=== PATIENT | female | born 1935 | race Caucasian/White ===

== ENCOUNTER 2017-12-12 10:55 | Emergency (ER) | payer OTHER ==
[2017-12-12] MEDS: AZITHROMYCIN 250 MG TAB PO (15:29)
[2017-12-12 15:30] LABS: ADD MAN DIFF? NO
[2017-12-12 15:31] LABS: ABNORMAL IP MESSAGE 1; BASOPHILS % 0.6 % (0.0-2.0); EOSINOPHILS # 0.1 10^3/ul (0.0-0.5); EOSINOPHILS % 1.7 % (0.0-7.0); HEMATOCRIT 39.4 % (37.0-47.0); HEMOGLOBIN 12.9 g/dl (12.0-16.0); LYMPHOCYTES # 2.2 10^3/ul (0.8-2.9); LYMPHOCYTES % 42.8 % (15.0-51.0); MEAN CORPUSCULAR HGB CONC 32.7 g/dl (32.0-37.0); MEAN CORPUSCULAR VOLUME 110.1 fl (82.0-101.0); MEAN PLATELET VOLUME 10.9 fl (7.4-10.4); MONOCYTE # 0.5 10^3/ul (0.3-0.9); MONOCYTES % 9.1 % (0.0-11.0); NEUTROPHIL # 2.4 10^3/ul (1.6-7.5); NEUTROPHILS % 45.6 % (39.0-77.0); PLATELET COUNT 91 10^3/UL (140-415); RED BLOOD COUNT 3.58 10^6/ul (4.20-5.40); RED CELL DISTRIBUTION WIDTH 13.6 % (11.5-14.5)
[2017-12-12 15:31] LABS: WHITE BLOOD COUNT 5.2 10^3/ul (4.8-10.8)
[2017-12-12 15:33] LABS: POSITIVE DIFF @See below
[2017-12-12 15:48] LABS: ANION GAP 8 (8-16); BLOOD UREA NITROGEN 12 mg/dl (7-20); CALCIUM 8.6 mg/dl (8.4-10.2); CARBON DIOXIDE 30 mmol/L (21-31); CHLORIDE 105 mmol/L (97-110); CREATININE 0.66 mg/dl (0.44-1.00); GLUCOSE 100 mg/dl (70-220); POTASSIUM 4.2 mmol/L (3.5-5.1); SODIUM 139 mmol/L (135-144)
[2017-12-12 15:59] LABS: TROPONIN-I < 0.012 ng/ml (0.000-0.120)
== END 2017-12-12 17:27 | disposition home or self-care (01) ==
LOC: E/R 10:55
DX: J40 Bronchitis, not specified as acute or chronic (principal); R00.1 Bradycardia, unspecified
CPT/HCPCS: 36415; 71045; 80048; 84484; 85025; 93005; 99285-25

== ENCOUNTER 2017-12-23 23:34 | Inpatient (IN) | payer OTHER ==
[2017-12-24 00:28] LABS: ADD MAN DIFF? NO
[2017-12-24 00:31] LABS: ABNORMAL IP MESSAGE 1; BASOPHILS % 0.5 % (0.0-2.0); EOSINOPHILS # 0.2 10^3/ul (0.0-0.5); EOSINOPHILS % 4.7 % (0.0-7.0); HEMATOCRIT 35.4 % (37.0-47.0); HEMOGLOBIN 11.5 g/dl (12.0-16.0); LYMPHOCYTES # 1.6 10^3/ul (0.8-2.9); LYMPHOCYTES % 38.8 % (15.0-51.0); MEAN CORPUSCULAR HEMOGLOBIN 35.1 pg (29.0-33.0); MEAN CORPUSCULAR HGB CONC 32.5 g/dl (32.0-37.0); MEAN CORPUSCULAR VOLUME 107.9 fl (82.0-101.0); MEAN PLATELET VOLUME 11.2 fl (7.4-10.4); MONOCYTE # 0.5 10^3/ul (0.3-0.9); MONOCYTES % 11.9 % (0.0-11.0); NEUTROPHIL # 1.8 10^3/ul (1.6-7.5); NEUTROPHILS % 43.9 % (39.0-77.0); PLATELET COUNT 70 10^3/UL (140-415); RED BLOOD COUNT 3.28 10^6/ul (4.20-5.40); RED CELL DISTRIBUTION WIDTH 13.5 % (11.5-14.5)
[2017-12-24 00:32] LABS: POSITIVE DIFF @See below
[2017-12-24 00:51] LABS: INR 1.38; PROTIME 17.2 Sec (11.9-14.9); PT RATIO 1.3
[2017-12-24 00:55] LABS: ALANINE AMINOTRANSFERASE 57 IU/L (13-69); ALBUMIN 2.7 g/dl (3.3-4.9); ALBUMIN/GLOBULIN RATIO 0.69; ALKALINE PHOSPHATASE 278 IU/L (42-121); ANION GAP 8 (8-16); ASPARTATE AMINO TRANSFERASE 93 IU/L (15-46); BILIRUBIN,INDIRECT 1.3 mg/dl (0-1.1); BILIRUBIN,TOTAL 1.3 mg/dl (0.2-1.3); BLOOD UREA NITROGEN 6 mg/dl (7-20); CALCIUM 8.3 mg/dl (8.4-10.2); CARBON DIOXIDE 30 mmol/L (21-31); CHLORIDE 105 mmol/L (97-110); CREATININE 0.55 mg/dl (0.44-1.00); GLUCOSE 107 mg/dl (70-220); LIPASE 144 U/L (23-300); POTASSIUM 3.6 mmol/L (3.5-5.1); SODIUM 139 mmol/L (135-144); TOTAL PROTEIN 6.6 g/dl (6.1-8.1)
[2017-12-24] MEDS ORDERED: CLINDAMYCIN 600 MG INJ IVPB (01:30)
[2017-12-24] MEDS: HYDROCODONE/APAP (10/325) TAB PO (02:19)
[2017-12-24] MEDS: CLINDAMYCIN 600 MG/D5W (PMX) 50 ML IVPB ×2 (02:19→21:05)
[2017-12-24] MEDS: IBUPROFEN 600 MG TAB PO (05:57)
[2017-12-24 06:50] LABS: ADD MAN DIFF? NO
[2017-12-24 06:58] LABS: WHITE BLOOD COUNT 3.8 10^3/ul (4.8-10.8)
[2017-12-24 06:58] LABS: ABNORMAL IP MESSAGE 1; BASOPHILS % 0.5 % (0.0-2.0); EOSINOPHILS # 0.1 10^3/ul (0.0-0.5); EOSINOPHILS % 3.2 % (0.0-7.0); HEMATOCRIT 33.2 % (37.0-47.0); HEMOGLOBIN 10.8 g/dl (12.0-16.0); LYMPHOCYTES # 1.4 10^3/ul (0.8-2.9); LYMPHOCYTES % 37.1 % (15.0-51.0); MEAN CORPUSCULAR HEMOGLOBIN 35.1 pg (29.0-33.0); MEAN CORPUSCULAR HGB CONC 32.5 g/dl (32.0-37.0); MEAN CORPUSCULAR VOLUME 107.8 fl (82.0-101.0); MEAN PLATELET VOLUME 11.7 fl (7.4-10.4); MONOCYTE # 0.4 10^3/ul (0.3-0.9); MONOCYTES % 10.9 % (0.0-11.0); NEUTROPHIL # 1.8 10^3/ul (1.6-7.5); PLATELET COUNT 65 10^3/UL (140-415); RED BLOOD COUNT 3.08 10^6/ul (4.20-5.40); RED CELL DISTRIBUTION WIDTH 13.8 % (11.5-14.5)
[2017-12-24 07:02] LABS: POSITIVE DIFF @See below
[2017-12-24 07:23] LABS: ANION GAP 7 (8-16); BLOOD UREA NITROGEN 7 mg/dl (7-20); CARBON DIOXIDE 27 mmol/L (21-31); CHLORIDE 107 mmol/L (97-110); GLUCOSE 104 mg/dl (70-220); POTASSIUM 4.1 mmol/L (3.5-5.1); SODIUM 137 mmol/L (135-144)
[2017-12-24] MEDS ORDERED: morphine 2 MG INJ IV (12:00)
[2017-12-24] MEDS ORDERED: BISACODYL (EC) 5 MG TAB PO (12:00)
[2017-12-24] MEDS ORDERED: DOCUSATE SODIUM 100 MG CAP PO (12:00)
[2017-12-24] MEDS: SOD CHLORIDE 0.9% 1,000 ML IV (13:47)
[2017-12-24] MEDS: ONDANSETRON 4 MG INJ IV (13:47)
[2017-12-24 14:05] LABS: HAAIG REFLEX REFLEX FILED
[2017-12-24 15:08] LABS: HEPATITIS B CORE ANTIBODY NEGATIVE (NEGATIVE)
[2017-12-24] MEDS: METOCLOPRAMIDE 10 MG INJ IV ×2 (16:11→21:04)
[2017-12-24 18:22] LABS: HEPATITIS B SURFACE ANTIGEN NEGATIVE (NEGATIVE)
[2017-12-24 18:40] LABS: HEPATITIS C VIRAL ANTIBODY NEGATIVE (NEGATIVE)
[2017-12-24] MEDS: PANTOPRAZOLE 40 MG INJ IV (18:48)
[2017-12-24] MEDS ORDERED: HEPARIN 5,000 UNIT/0.5 ML VIAL SC (21:00)
[2017-12-25] MEDS: METOCLOPRAMIDE 10 MG INJ IV ×3 (05:09→21:34)
[2017-12-25] MEDS: PANTOPRAZOLE 40 MG INJ IV ×2 (05:09→18:28)
[2017-12-25] MEDS: SOD CHLORIDE 0.9% 1,000 ML IV ×2 (05:09→21:20)
[2017-12-25] MEDS ORDERED: PANTOPRAZOLE (EC) 40 MG TAB PO (06:00)
[2017-12-25 06:01] LABS: ADD MAN DIFF? NO
[2017-12-25 06:17] LABS: ABNORMAL IP MESSAGE 1; BASOPHILS % 0.6 % (0.0-2.0); EOSINOPHILS # 0.2 10^3/ul (0.0-0.5); EOSINOPHILS % 4.2 % (0.0-7.0); HEMATOCRIT 35.2 % (37.0-47.0); HEMOGLOBIN 11.6 g/dl (12.0-16.0); LYMPHOCYTES # 1.7 10^3/ul (0.8-2.9); LYMPHOCYTES % 48.2 % (15.0-51.0); MEAN CORPUSCULAR HEMOGLOBIN 36.3 pg (29.0-33.0); MEAN PLATELET VOLUME 11.6 fl (7.4-10.4); MONOCYTE # 0.3 10^3/ul (0.3-0.9); MONOCYTES % 9.2 % (0.0-11.0); NEUTROPHIL # 1.3 10^3/ul (1.6-7.5); NEUTROPHILS % 37.5 % (39.0-77.0); PLATELET COUNT 68 10^3/UL (140-415); RED CELL DISTRIBUTION WIDTH 13.9 % (11.5-14.5)
[2017-12-25 06:17] LABS: WHITE BLOOD COUNT 3.6 10^3/ul (4.8-10.8)
[2017-12-25 06:26] LABS: POSITIVE DIFF @See below
[2017-12-25 06:35] LABS: INR 1.44; PROTIME 17.8 Sec (11.9-14.9); PT RATIO 1.4
[2017-12-25 06:36] LABS: PARTIAL THROMBOPLASTIN TIME 38.9 Sec (25.0-35.0)
[2017-12-25 06:57] LABS: ALANINE AMINOTRANSFERASE 52 IU/L (13-69); ALBUMIN 2.3 g/dl (3.3-4.9); ALBUMIN/GLOBULIN RATIO 0.63; ALKALINE PHOSPHATASE 188 IU/L (42-121); ANION GAP 7 (8-16); ASPARTATE AMINO TRANSFERASE 88 IU/L (15-46); BILIRUBIN,INDIRECT 1.8 mg/dl (0-1.1); BILIRUBIN,TOTAL 1.8 mg/dl (0.2-1.3); BLOOD UREA NITROGEN 8 mg/dl (7-20); CARBON DIOXIDE 28 mmol/L (21-31); CHLORIDE 109 mmol/L (97-110); CREATININE 0.58 mg/dl (0.44-1.00); GLUCOSE 69 mg/dl (70-220); POTASSIUM 4.4 mmol/L (3.5-5.1); SODIUM 140 mmol/L (135-144); TOTAL PROTEIN 5.9 g/dl (6.1-8.1)
[2017-12-25] MEDS: CLINDAMYCIN 600 MG/D5W (PMX) 50 ML IVPB (09:29)
[2017-12-25] MEDS: PROPOFOL 40 ML (15:00)
[2017-12-26] MEDS: SOD CHLORIDE 0.9% 1,000 ML IV ×3 (02:45→20:29)
[2017-12-26] MEDS: PANTOPRAZOLE 40 MG INJ IV ×2 (05:19→17:40)
[2017-12-26] MEDS: LEVOTHYROXINE 50 MCG TAB PO (05:19)
[2017-12-26] MEDS: METOCLOPRAMIDE 10 MG INJ IV ×3 (05:20→20:29)
[2017-12-26 06:48] LABS: ADD MAN DIFF? NO
[2017-12-26 07:02] LABS: ABNORMAL IP MESSAGE 1; BASOPHILS % 0.3 % (0.0-2.0); EOSINOPHILS # 0.1 10^3/ul (0.0-0.5); EOSINOPHILS % 3.3 % (0.0-7.0); HEMATOCRIT 34.3 % (37.0-47.0); HEMOGLOBIN 11.2 g/dl (12.0-16.0); LYMPHOCYTES # 1.5 10^3/ul (0.8-2.9); LYMPHOCYTES % 37.6 % (15.0-51.0); MEAN CORPUSCULAR HEMOGLOBIN 35.7 pg (29.0-33.0); MEAN CORPUSCULAR HGB CONC 32.7 g/dl (32.0-37.0); MEAN CORPUSCULAR VOLUME 109.2 fl (82.0-101.0); MEAN PLATELET VOLUME 11.8 fl (7.4-10.4); MONOCYTE # 0.4 10^3/ul (0.3-0.9); MONOCYTES % 10.7 % (0.0-11.0); NEUTROPHIL # 1.9 10^3/ul (1.6-7.5); NEUTROPHILS % 48.1 % (39.0-77.0); PLATELET COUNT 69 10^3/UL (140-415); RED BLOOD COUNT 3.14 10^6/ul (4.20-5.40); RED CELL DISTRIBUTION WIDTH 14.3 % (11.5-14.5)
[2017-12-26 07:02] LABS: WHITE BLOOD COUNT 3.9 10^3/ul (4.8-10.8)
[2017-12-26 07:25] LABS: ANION GAP 7 (8-16); BLOOD UREA NITROGEN 11 mg/dl (7-20); CARBON DIOXIDE 27 mmol/L (21-31); CHLORIDE 109 mmol/L (97-110); CREATININE 0.69 mg/dl (0.44-1.00); GLUCOSE 73 mg/dl (70-220); POTASSIUM 4.3 mmol/L (3.5-5.1); SODIUM 139 mmol/L (135-144)
[2017-12-26 07:27] LABS: POSITIVE DIFF @See below
[2017-12-26 07:32] LABS: FREE T4 (FREE THYROXINE) 1.09 ng/dl (0.85-1.93)
[2017-12-26] MEDS ORDERED: morphine LIQ (10 MG/5 ML) CUP PO (17:00)
[2017-12-26] MEDS: LIDOCAINE 2% (SDV) 5 ML INJ (19:33)
[2017-12-27] MEDS: PANTOPRAZOLE 40 MG INJ IV ×2 (06:06→17:18)
[2017-12-27] MEDS: METOCLOPRAMIDE 10 MG INJ IV ×3 (06:06→21:20)
[2017-12-27] MEDS: LEVOTHYROXINE 50 MCG TAB PO (06:06)
[2017-12-27] MEDS: SOD CHLORIDE 0.9% 1,000 ML IV ×2 (14:47→23:20)
[2017-12-28] MEDS: LEVOTHYROXINE 125 MCG TAB PO (06:05)
[2017-12-28] MEDS: PANTOPRAZOLE 40 MG INJ IV ×2 (06:05→17:52)
[2017-12-28] MEDS: METOCLOPRAMIDE 10 MG INJ IV ×3 (06:05→21:22)
[2017-12-28 06:14] LABS: ADD MAN DIFF? NO
[2017-12-28 06:30] LABS: WHITE BLOOD COUNT 3.3 10^3/ul (4.8-10.8)
[2017-12-28 06:30] LABS: ABNORMAL IP MESSAGE 1; BASOPHILS % 0.6 % (0.0-2.0); EOSINOPHILS # 0.2 10^3/ul (0.0-0.5); EOSINOPHILS % 4.8 % (0.0-7.0); HEMATOCRIT 33.2 % (37.0-47.0); HEMOGLOBIN 10.9 g/dl (12.0-16.0); LYMPHOCYTES # 1.7 10^3/ul (0.8-2.9); LYMPHOCYTES % 50.5 % (15.0-51.0); MEAN CORPUSCULAR HGB CONC 32.8 g/dl (32.0-37.0); MEAN CORPUSCULAR VOLUME 109.6 fl (82.0-101.0); MEAN PLATELET VOLUME 11.6 fl (7.4-10.4); MONOCYTE # 0.3 10^3/ul (0.3-0.9); MONOCYTES % 9.7 % (0.0-11.0); NEUTROPHIL # 1.1 10^3/ul (1.6-7.5); NEUTROPHILS % 34.1 % (39.0-77.0); PLATELET COUNT 65 10^3/UL (140-415); RED BLOOD COUNT 3.03 10^6/ul (4.20-5.40); RED CELL DISTRIBUTION WIDTH 14.1 % (11.5-14.5)
[2017-12-28] MEDS: SOD CHLORIDE 0.9% 1,000 ML IV (06:48)
[2017-12-28 07:11] LABS: ANION GAP 3 (8-16); BLOOD UREA NITROGEN 6 mg/dl (7-20); CARBON DIOXIDE 30 mmol/L (21-31); CHLORIDE 111 mmol/L (97-110); CREATININE 0.64 mg/dl (0.44-1.00); GLUCOSE 78 mg/dl (70-220); POTASSIUM 4.1 mmol/L (3.5-5.1); SODIUM 140 mmol/L (135-144)
[2017-12-28 07:24] LABS: POSITIVE DIFF @See below
[2017-12-29] MEDS: SOD CHLORIDE 0.9% 1,000 ML IV ×3 (04:30→21:28)
[2017-12-29] MEDS: LEVOTHYROXINE 125 MCG TAB PO (06:13)
[2017-12-29] MEDS: METOCLOPRAMIDE 10 MG INJ IV ×3 (06:13→21:27)
[2017-12-29] MEDS: PANTOPRAZOLE 40 MG INJ IV ×2 (06:13→18:27)
[2017-12-30] MEDS: SOD CHLORIDE 0.9% 1,000 ML IV ×2 (01:20→12:57)
[2017-12-30] MEDS: LEVOTHYROXINE 125 MCG TAB PO (06:19)
[2017-12-30] MEDS: PANTOPRAZOLE 40 MG INJ IV ×2 (06:19→17:50)
[2017-12-30] MEDS: METOCLOPRAMIDE 10 MG INJ IV ×3 (06:19→21:58)
[2017-12-31] MEDS: PANTOPRAZOLE 40 MG INJ IV ×2 (05:59→18:31)
[2017-12-31] MEDS: METOCLOPRAMIDE 10 MG INJ IV ×3 (05:59→21:25)
[2017-12-31] MEDS: LEVOTHYROXINE 125 MCG TAB PO (06:04)
[2017-12-31 07:06] LABS: ADD MAN DIFF? NO
[2017-12-31 07:13] LABS: ABNORMAL IP MESSAGE 1; BASOPHILS % 0.3 % (0.0-2.0); EOSINOPHILS # 0.1 10^3/ul (0.0-0.5); EOSINOPHILS % 3.6 % (0.0-7.0); HEMATOCRIT 31.6 % (37.0-47.0); HEMOGLOBIN 10.6 g/dl (12.0-16.0); LYMPHOCYTES # 1.7 10^3/ul (0.8-2.9); LYMPHOCYTES % 44.6 % (15.0-51.0); MEAN CORPUSCULAR HEMOGLOBIN 36.3 pg (29.0-33.0); MEAN CORPUSCULAR HGB CONC 33.5 g/dl (32.0-37.0); MEAN CORPUSCULAR VOLUME 108.2 fl (82.0-101.0); MEAN PLATELET VOLUME 11.4 fl (7.4-10.4); MONOCYTE # 0.4 10^3/ul (0.3-0.9); MONOCYTES % 11.1 % (0.0-11.0); NEUTROPHIL # 1.6 10^3/ul (1.6-7.5); NEUTROPHILS % 40.4 % (39.0-77.0); PLATELET COUNT 64 10^3/UL (140-415); RED BLOOD COUNT 2.92 10^6/ul (4.20-5.40); RED CELL DISTRIBUTION WIDTH 14.2 % (11.5-14.5)
[2017-12-31 07:13] LABS: WHITE BLOOD COUNT 3.9 10^3/ul (4.8-10.8)
[2017-12-31 07:26] LABS: POSITIVE DIFF @See below
[2017-12-31 07:37] LABS: INR 1.46; PT RATIO 1.4
[2017-12-31 07:48] LABS: ANION GAP 8 (8-16); BLOOD UREA NITROGEN 7 mg/dl (7-20); CALCIUM 8.2 mg/dl (8.4-10.2); CARBON DIOXIDE 30 mmol/L (21-31); CHLORIDE 106 mmol/L (97-110); CREATININE 0.57 mg/dl (0.44-1.00); GLUCOSE 75 mg/dl (70-220); POTASSIUM 4.1 mmol/L (3.5-5.1); SODIUM 140 mmol/L (135-144)
[2018-01-01] MEDS: METOCLOPRAMIDE 10 MG INJ IV ×2 (06:04→14:33)
[2018-01-01] MEDS: LEVOTHYROXINE 125 MCG TAB PO (06:05)
[2018-01-01] MEDS: PANTOPRAZOLE 40 MG INJ IV ×2 (06:05→17:27)
== END 2018-01-01 21:40 | disposition home or self-care (01) | DRG 603 ==
LOC: E/R 23:34 → 2NE 12-24 01:40
PROC: 0DB68ZX Excision of Stomach, Via Natural or Artificial Opening Endoscopic, Diagnostic (ICD-10-PCS; principal; 2017-12-25 14:10)
DX: L03.115 Cellulitis of right lower limb (principal); D61.818 Other pancytopenia; D68.9 Coagulation defect, unspecified; M48.56XA Collapsed vertebra, not elsewhere classified, lumbar region, initial encounter for fracture; K29.70 Gastritis, unspecified, without bleeding; E03.9 Hypothyroidism, unspecified; K75.81 Nonalcoholic steatohepatitis (NASH); R11.2 Nausea with vomiting, unspecified; M54.10 Radiculopathy, site unspecified; M48.061 Spinal stenosis, lumbar region without neurogenic claudication
CPT/HCPCS: 72158; 74176; 80048; 80053; 83690; 84439; 84443; 85025; 85610; 85730; 86704; 86709; 86803; 87040; 87081; 87340; 88305; 88312; 93970; 97116; 97161; 97530; G0378

== ENCOUNTER 2018-05-27 17:52 | Emergency (ER) | payer OTHER ==
[2018-05-27] MEDS ORDERED: CLINDAMYCIN 600 MG INJ IM (21:30)
[2018-05-27] MEDS: ACETAMINOPHEN 325 MG TAB PO ×2 (21:35→21:38)
[2018-05-27] MEDS: IBUPROFEN 200 MG TAB PO (21:35)
[2018-05-27] MEDS: AZITHROMYCIN 250 MG TAB PO (21:36)
[2018-05-27] MEDS: CLINDAMYCIN 300 MG INJ IM (21:46)
== END 2018-05-27 22:36 | disposition home or self-care (01) ==
LOC: FTE 22:36
DX: A49.9 Bacterial infection, unspecified (principal); Z96.652 Presence of left artificial knee joint
CPT/HCPCS: 96372; 99284-25

== ENCOUNTER 2018-06-01 11:04 | Inpatient (IN) | payer OTHER ==
[2018-06-01 11:58] LABS: AADO2 Arterial 337.4 mmHg (7.0-24.0); Allen Test ACCEPTAB; Arterial Base Excess -7.7 mmol/L (-3.0-3); Arterial Blood Gas Oxygen Sat 92.7 mmHG (95.0-100.0); Arterial COHb 0.9 % (0.0-3.0); Arterial Fraction of Oxyhgb 91.7 % (93.0-99.0); Arterial HCO3 15.8 mmol/L (22.0-26.0); Arterial MetHb 0.2 % (0.0-1.5); Arterial pCO2 27.4 mmhg (35-45); MODE MASK - SIMPLE; Site Left Radial
[2018-06-01 12:07] LABS: ADD MAN DIFF? NO
[2018-06-01 12:09] LABS: ABNORMAL IP MESSAGE 1; BASOPHILS % 0.3 % (0.0-2.0); EOSINOPHILS % 0.2 % (0.0-7.0); HEMATOCRIT 38.8 % (37.0-47.0); HEMOGLOBIN 12.4 g/dl (12.0-16.0); LYMPHOCYTES # 0.6 10^3/ul (0.8-2.9); LYMPHOCYTES % 4.7 % (15.0-51.0); MEAN CORPUSCULAR HEMOGLOBIN 35.2 pg (29.0-33.0); MEAN CORPUSCULAR VOLUME 110.2 fl (82.0-101.0); MEAN PLATELET VOLUME 11.4 fl (7.4-10.4); MONOCYTE # 0.9 10^3/ul (0.3-0.9); MONOCYTES % 7.4 % (0.0-11.0); NEUTROPHIL # 10.9 10^3/ul (1.6-7.5); NEUTROPHILS % 86.1 % (39.0-77.0); PLATELET COUNT 96 10^3/UL (140-415); RED BLOOD COUNT 3.52 10^6/ul (4.20-5.40); RED CELL DISTRIBUTION WIDTH 14.6 % (11.5-14.5)
[2018-06-01 12:09] LABS: WHITE BLOOD COUNT 12.6 10^3/ul (4.8-10.8)
[2018-06-01 12:10] LABS: POSITIVE DIFF @See below
[2018-06-01 12:29] LABS: INR 1.66; PROTIME 19.7 Sec (11.9-14.9); PT RATIO 1.5
[2018-06-01] MEDS: SODIUM CHLORIDE 0.9% 1L BAG IV* (12:30)
[2018-06-01 12:33] LABS: ALANINE AMINOTRANSFERASE 38 IU/L (13-69); ALBUMIN 2.7 g/dl (3.3-4.9); ALBUMIN/GLOBULIN RATIO 0.79; ALKALINE PHOSPHATASE 174 IU/L (42-121); ANION GAP 13 (5-13); ASPARTATE AMINO TRANSFERASE 95 IU/L (15-46); BILIRUBIN,INDIRECT 1.7 mg/dl (0-1.1); BILIRUBIN,TOTAL 1.7 mg/dl (0.2-1.3); BLOOD UREA NITROGEN 15 mg/dl (7-20); CALCIUM 8.4 mg/dl (8.4-10.2); CARBON DIOXIDE 20 mmol/L (21-31); CHLORIDE 105 mmol/L (97-110); GLUCOSE 104 mg/dl (70-220); POTASSIUM 3.9 mmol/L (3.5-5.1); SODIUM 138 mmol/L (135-144); TOTAL PROTEIN 6.1 g/dl (6.1-8.1)
[2018-06-01 12:38] LABS: ADD UMIC YES; UR ASCORBIC ACID 40 mg/dL (NEGATIVE); UR BACTERIA FEW /HPF (NONE SEEN); UR BILIRUBIN (Dip) NEGATIVE (NEGATIVE); UR BLOOD (Dip) NEGATIVE (NEGATIVE); UR CLARITY CLOUDY (CLEAR); UR COLOR AMBER (YELLOW); UR GLUCOSE (Dip) NEGATIVE (NEGATIVE); UR KETONES (Dip) NEGATIVE (NEGATIVE); UR LEUKOCYTE ESTERASE (Dip) TRACE Leu/ul (NEGATIVE); UR MUCUS FEW /HPF (NONE SEEN); UR NITRITE (Dip) NEGATIVE (NEGATIVE); UR RBC 2 /HPF (0-5); UR SPECIFIC GRAVITY (Dip) 1.025 (1.003-1.030); UR SQUAMOUS EPITHELIAL CELL MODERATE /HPF (FEW); UR TOTAL PROTEIN (Dip) NEGATIVE (NEGATIVE); UR UROBILINOGEN (Dip) 1+ mg/dL (NEGATIVE); UR WBC 4 /HPF (0-5)
[2018-06-01 12:45] LABS: TROPONIN-I 0.043 ng/ml (0.000-0.120)
[2018-06-01] MEDS: LEVOFLOXACIN 750MG/D5W (PMX) 150 ML IVPB (13:37)
[2018-06-01 13:51] LABS: B-TYPE NATRIURETIC PEPTIDE 1630 PG/ML (0-450)
[2018-06-01] MEDS ORDERED: ONDANSETRON 4 MG INJ IV ×2 (15:00→16:00)
[2018-06-01] MEDS: FUROSEMIDE 40 MG INJ IV (15:00)
[2018-06-01] MEDS ORDERED: ACETAMINOPHEN 325 MG TAB PO ×2 (15:00→16:00)
[2018-06-01] MEDS ORDERED: morphine 2 MG INJ IV (16:00)
[2018-06-01] MEDS ORDERED: NACL 0.9% 3 ML SYG IV (16:00)
[2018-06-01 19:44] LABS: LACTIC ACID 3.6 mmol/L (0.5-2.0)
[2018-06-01] MEDS ORDERED: RANITIDINE 150 MG TAB PO (21:00)
[2018-06-01] MEDS ORDERED: ALBUTEROL HFA 8 GM INHALER INH (21:00)
[2018-06-02] MEDS: FAMOTIDINE 20 MG INJ IV ×2 (00:19→08:33)
[2018-06-02 05:58] LABS: AADO2 Arterial 331.9 mmHg (7.0-24.0); Allen Test ACCEPTAB; Arterial Base Excess -2.6 mmol/L (-3.0-3); Arterial Blood Gas Oxygen Sat 91.5 mmHG (95.0-100.0); Arterial COHb 0.3 % (0.0-3.0); Arterial HCO3 20.8 mmol/L (22.0-26.0); Arterial MetHb 0.3 % (0.0-1.5); Arterial pCO2 31.5 mmhg (35-45); Blood Gas IEPAP 15/5; MODE MASK - BIPAP; Site Right Radial
[2018-06-02 06:00] LABS: ADD MAN DIFF? NO
[2018-06-02 06:08] LABS: WHITE BLOOD COUNT 11.2 10^3/ul (4.8-10.8)
[2018-06-02 06:08] LABS: ABNORMAL IP MESSAGE 1; BASOPHILS % 0.3 % (0.0-2.0); EOSINOPHILS # 0.1 10^3/ul (0.0-0.5); EOSINOPHILS % 0.4 % (0.0-7.0); HEMATOCRIT 34.6 % (37.0-47.0); HEMOGLOBIN 11.3 g/dl (12.0-16.0); LYMPHOCYTES # 0.7 10^3/ul (0.8-2.9); LYMPHOCYTES % 6.4 % (15.0-51.0); MEAN CORPUSCULAR HEMOGLOBIN 35.9 pg (29.0-33.0); MEAN CORPUSCULAR HGB CONC 32.7 g/dl (32.0-37.0); MEAN CORPUSCULAR VOLUME 109.8 fl (82.0-101.0); MEAN PLATELET VOLUME 11.9 fl (7.4-10.4); MONOCYTE # 0.6 10^3/ul (0.3-0.9); MONOCYTES % 5.7 % (0.0-11.0); NEUTROPHIL # 9.6 10^3/ul (1.6-7.5); NEUTROPHILS % 86.1 % (39.0-77.0); PLATELET COUNT 90 10^3/UL (140-415); RED BLOOD COUNT 3.15 10^6/ul (4.20-5.40); RED CELL DISTRIBUTION WIDTH 14.7 % (11.5-14.5)
[2018-06-02 06:16] LABS: POSITIVE DIFF @See below
[2018-06-02 06:41] LABS: HEMOGLOBIN A1C 4.7 % (0-5.9)
[2018-06-02] MEDS: LEVOTHYROXINE 125 MCG TAB PO (06:52)
[2018-06-02 07:07] LABS: ALANINE AMINOTRANSFERASE 40 IU/L (13-69); ALBUMIN 2.3 g/dl (3.3-4.9); ALBUMIN/GLOBULIN RATIO 0.74; ALKALINE PHOSPHATASE 151 IU/L (42-121); ANION GAP 5 (5-13); ASPARTATE AMINO TRANSFERASE 73 IU/L (15-46); BILIRUBIN,INDIRECT 1.2 mg/dl (0-1.1); BILIRUBIN,TOTAL 1.2 mg/dl (0.2-1.3); BLOOD UREA NITROGEN 17 mg/dl (7-20); CARBON DIOXIDE 25 mmol/L (21-31); CHLORIDE 108 mmol/L (97-110); CREATININE 0.84 mg/dl (0.44-1.00); GLUCOSE 65 mg/dl (70-220); POTASSIUM 4.1 mmol/L (3.5-5.1); SODIUM 138 mmol/L (135-144); TOTAL PROTEIN 5.4 g/dl (6.1-8.1)
[2018-06-02] MEDS: ENOXAPARIN 30 MG/0.3 ML SYG SC (08:37)
[2018-06-02] MEDS: LEVOFLOXACIN 500MG/D5W (PMX) 100 ML IVPB (14:00)
[2018-06-02] MEDS: MEROPENEM 1 GM/50ML(PMX) 50 ML IVPB ×2 (16:24→20:43)
[2018-06-02] MEDS: FUROSEMIDE 20 MG INJ IV (17:06)
[2018-06-02 17:50] LABS: HDL CHOLESTEROL 28 mg/dl (33-92); LDL CHOLESTEROL,CALCULATED 45 mg/dl; TRIGLYCERIDES 61 mg/dl (0-149)
[2018-06-02 17:50] LABS: CHOLESTEROL 85 mg/dl (100-200)
[2018-06-02 19:45] LABS: TROPONIN-I 0.029 ng/ml (0.000-0.120)
[2018-06-02] MEDS ORDERED: morphine LIQ (10 MG/5 ML) CUP PO (23:00)
[2018-06-03 01:16] LABS: TROPONIN-I 0.039 ng/ml (0.000-0.120)
[2018-06-03 06:17] LABS: ADD MAN DIFF? NO
[2018-06-03 06:22] LABS: ABNORMAL IP MESSAGE 1; BASOPHILS % 0.3 % (0.0-2.0); EOSINOPHILS # 0.1 10^3/ul (0.0-0.5); EOSINOPHILS % 0.6 % (0.0-7.0); HEMATOCRIT 34.2 % (37.0-47.0); HEMOGLOBIN 11.1 g/dl (12.0-16.0); LYMPHOCYTES # 0.9 10^3/ul (0.8-2.9); LYMPHOCYTES % 8.6 % (15.0-51.0); MEAN CORPUSCULAR HEMOGLOBIN 35.6 pg (29.0-33.0); MEAN CORPUSCULAR HGB CONC 32.5 g/dl (32.0-37.0); MEAN CORPUSCULAR VOLUME 109.6 fl (82.0-101.0); MEAN PLATELET VOLUME 11.5 fl (7.4-10.4); MONOCYTE # 0.3 10^3/ul (0.3-0.9); MONOCYTES % 2.9 % (0.0-11.0); NEUTROPHIL # 9.4 10^3/ul (1.6-7.5); NEUTROPHILS % 86.7 % (39.0-77.0); RED BLOOD COUNT 3.12 10^6/ul (4.20-5.40); RED CELL DISTRIBUTION WIDTH 15.1 % (11.5-14.5)
[2018-06-03 06:22] LABS: WHITE BLOOD COUNT 10.9 10^3/ul (4.8-10.8)
[2018-06-03] MEDS: LEVOTHYROXINE 125 MCG TAB PO (06:27)
[2018-06-03] MEDS: FUROSEMIDE 20 MG INJ IV ×2 (06:28→17:24)
[2018-06-03 06:37] LABS: PLATELET COUNT 84 10^3/UL (140-415); POSITIVE DIFF @See below
[2018-06-03 06:56] LABS: ANION GAP 3 (5-13); BLOOD UREA NITROGEN 21 mg/dl (7-20); CARBON DIOXIDE 26 mmol/L (21-31); CHLORIDE 109 mmol/L (97-110); CREATININE 0.96 mg/dl (0.44-1.00); GLUCOSE 88 mg/dl (70-220); MAGNESIUM 2.1 mg/dl (1.7-2.5); PHOSPHORUS 3.2 mg/dl (2.5-4.9); POTASSIUM 4.2 mmol/L (3.5-5.1); SODIUM 138 mmol/L (135-144)
[2018-06-03 07:04] LABS: TROPONIN-I 0.028 ng/ml (0.000-0.120)
[2018-06-03 07:47] LABS: AADO2 Arterial 609.1 mmHg (7.0-24.0); Allen Test ACCEPTAB; Arterial Base Excess 0.3 mmol/L (-3.0-3); Arterial Blood Gas Oxygen Sat 90.3 mmHG (95.0-100.0); Arterial COHb 0.2 % (0.0-3.0); Arterial Fraction of Oxyhgb 89.8 % (93.0-99.0); Arterial HCO3 25.4 mmol/L (22.0-26.0); Arterial MetHb 0.3 % (0.0-1.5); Arterial pCO2 42.9 mmhg (35-45); MODE HFNC; Site Right Radial
[2018-06-03] MEDS: MEROPENEM 1 GM/50ML(PMX) 50 ML IVPB ×2 (08:10→20:30)
[2018-06-03] MEDS: FAMOTIDINE 20 MG TAB PO (08:10)
[2018-06-03] MEDS: ENOXAPARIN 30 MG/0.3 ML SYG SC (08:27)
[2018-06-03 08:58] LABS: ANISOCYTOSIS 1+ (0-0); BAND NEUTROPHILS #M 0.9 10^3/ul (0.0-0.6); BAND NEUTROPHILS % (M) 9 % (0-4); BURR CELLS 1+ (0-0); GIANT THROMBO% (M) 3 % (0-0); LYMPHOCYTES #M 0.2 10^3/ul (0.8-2.9); LYMPHOCYTES % (M) 2 % (15-51); MONOCYTE #M 0.2 10^3/ul (0.3-0.9); MONOCYTES % (M) 2 % (0-11); PLATELET ESTIMATE DECREASED; POLYCHROMASIA 3+ (0-0); REACTIVE LYMPHOCYTES #M 0.2 10^3/ul (0.0-0.0); REACTIVE LYMPHOCYTES% (M) 2 % (0-0); ROULEAU 1+ (0-0); SEG NEUT #M 9.4 10^3/ul (1.6-7.5); SEGMENTED NEUTROPHILS (M) % 85 % (39-77); SMUDGE%M 6 % (0-0)
[2018-06-03] MEDS: METHYLPREDNISOLONE 40 MG INJ IV ×2 (11:56→17:24)
[2018-06-03 17:21] LABS: Allen Test ACCEPTAB; MODE MASK - NRB; Site Left Radial
[2018-06-03 17:56] LABS: AADO2 Arterial 603.6 mmHg (7.0-24.0); Arterial Base Excess 0.1 mmol/L (-3.0-3); Arterial Blood Gas Oxygen Sat 91.9 mmHG (95.0-100.0); Arterial COHb 1.1 % (0.0-3.0); Arterial Fraction of Oxyhgb 90.6 % (93.0-99.0); Arterial MetHb 0.3 % (0.0-1.5); Arterial pCO2 41.9 mmhg (35-45)
[2018-06-04] MEDS: METHYLPREDNISOLONE 40 MG INJ IV ×4 (00:31→17:01)
[2018-06-04 05:29] LABS: ADD MAN DIFF? NO
[2018-06-04 05:36] LABS: WHITE BLOOD COUNT 13.3 10^3/ul (4.8-10.8)
[2018-06-04 05:36] LABS: ABNORMAL IP MESSAGE 1; BASOPHILS % 0.3 % (0.0-2.0); EOSINOPHILS % 0.1 % (0.0-7.0); HEMATOCRIT 34.6 % (37.0-47.0); HEMOGLOBIN 11.3 g/dl (12.0-16.0); LYMPHOCYTES # 0.6 10^3/ul (0.8-2.9); LYMPHOCYTES % 4.5 % (15.0-51.0); MEAN CORPUSCULAR HEMOGLOBIN 35.5 pg (29.0-33.0); MEAN CORPUSCULAR HGB CONC 32.7 g/dl (32.0-37.0); MEAN CORPUSCULAR VOLUME 108.8 fl (82.0-101.0); MEAN PLATELET VOLUME 11.6 fl (7.4-10.4); MONOCYTE # 0.3 10^3/ul (0.3-0.9); MONOCYTES % 1.9 % (0.0-11.0); NEUTROPHIL # 12.3 10^3/ul (1.6-7.5); NEUTROPHILS % 92.4 % (39.0-77.0); PLATELET COUNT 72 10^3/UL (140-415); RED BLOOD COUNT 3.18 10^6/ul (4.20-5.40); RED CELL DISTRIBUTION WIDTH 15.3 % (11.5-14.5)
[2018-06-04 06:03] LABS: ANION GAP 7 (5-13); BLOOD UREA NITROGEN 23 mg/dl (7-20); CALCIUM 8.1 mg/dl (8.4-10.2); CARBON DIOXIDE 27 mmol/L (21-31); CHLORIDE 104 mmol/L (97-110); CREATININE 0.83 mg/dl (0.44-1.00); GLUCOSE 128 mg/dl (70-220); SODIUM 138 mmol/L (135-144)
[2018-06-04] MEDS: FUROSEMIDE 20 MG INJ IV (06:28)
[2018-06-04 06:43] LABS: POSITIVE DIFF @See below
[2018-06-04] MEDS: LEVOTHYROXINE 125 MCG TAB PO (07:00)
[2018-06-04 07:57] LABS: AADO2 Arterial 617.9 mmHg (7.0-24.0); Arterial Base Excess 0.1 mmol/L (-3.0-3); Arterial HCO3 25.3 mmol/L (22.0-26.0); Arterial pCO2 42.9 mmhg (35-45); MODE HFNC; Site Right Brachial
[2018-06-04] MEDS: FAMOTIDINE 20 MG TAB PO (07:59)
[2018-06-04] MEDS: MEROPENEM 1 GM/50ML(PMX) 50 ML IVPB ×2 (08:18→21:00)
[2018-06-04] MEDS: ENOXAPARIN 30 MG/0.3 ML SYG SC (08:24)
[2018-06-04] MEDS: FUROSEMIDE 40 MG INJ IV (17:04)
[2018-06-05 05:15] LABS: ABNORMAL IP MESSAGE 1; ADD MAN DIFF? NO; BASOPHILS % 0.2 % (0.0-2.0); HEMATOCRIT 38.2 % (37.0-47.0); HEMOGLOBIN 12.5 g/dl (12.0-16.0); LYMPHOCYTES # 0.8 10^3/ul (0.8-2.9); LYMPHOCYTES % 4.3 % (15.0-51.0); MEAN CORPUSCULAR HEMOGLOBIN 35.1 pg (29.0-33.0); MEAN CORPUSCULAR HGB CONC 32.7 g/dl (32.0-37.0); MEAN CORPUSCULAR VOLUME 107.3 fl (82.0-101.0); MEAN PLATELET VOLUME 11.7 fl (7.4-10.4); MONOCYTE # 0.5 10^3/ul (0.3-0.9); MONOCYTES % 2.7 % (0.0-11.0); NEUTROPHIL # 16.3 10^3/ul (1.6-7.5); NEUTROPHILS % 92.1 % (39.0-77.0); PLATELET COUNT 77 10^3/UL (140-415); RED BLOOD COUNT 3.56 10^6/ul (4.20-5.40); RED CELL DISTRIBUTION WIDTH 15.4 % (11.5-14.5)
[2018-06-05 05:15] LABS: WHITE BLOOD COUNT 17.7 10^3/ul (4.8-10.8)
[2018-06-05 05:31] LABS: POSITIVE DIFF @See below
[2018-06-05 05:40] LABS: ANION GAP 8 (5-13); BLOOD UREA NITROGEN 30 mg/dl (7-20); CALCIUM 7.9 mg/dl (8.4-10.2); CARBON DIOXIDE 32 mmol/L (21-31); CHLORIDE 101 mmol/L (97-110); GLUCOSE 122 mg/dl (70-220); POTASSIUM 3.7 mmol/L (3.5-5.1); SODIUM 141 mmol/L (135-144)
[2018-06-05] MEDS: FUROSEMIDE 40 MG INJ IV ×2 (06:41→17:22)
[2018-06-05] MEDS: METHYLPREDNISOLONE 40 MG INJ IV ×4 (06:41→17:22)
[2018-06-05] MEDS: LEVOTHYROXINE 125 MCG TAB PO (06:41)
[2018-06-05 08:23] LABS: Allen Test ACCEPTAB; Arterial Base Excess 6.1 mmol/L (-3.0-3); Arterial Blood Gas Oxygen Sat 82.3 mmHG (95.0-100.0); Arterial COHb 0.7 % (0.0-3.0); Arterial Fraction of Oxyhgb 81.5 % (93.0-99.0); Arterial HCO3 31.5 mmol/L (22.0-26.0); Arterial MetHb 0.3 % (0.0-1.5); Arterial pCO2 48.4 mmhg (35-45); MODE HFNC; Site Right Radial
[2018-06-05] MEDS: MEROPENEM 1 GM/50ML(PMX) 50 ML IVPB ×2 (08:38→20:30)
[2018-06-05] MEDS: ENOXAPARIN 30 MG/0.3 ML SYG SC (08:39)
[2018-06-05] MEDS: IOHEXOL 100 ML (19:27)
[2018-06-05] MEDS: SOD CHLORIDE 0.9% 100 ML (19:27)
[2018-06-06] MEDS: METHYLPREDNISOLONE 40 MG INJ IV ×5 (00:32→23:48)
[2018-06-06 06:03] LABS: ADD MAN DIFF? NO
[2018-06-06 06:11] LABS: ABNORMAL IP MESSAGE 1; BASOPHILS % 0.1 % (0.0-2.0); HEMATOCRIT 38.5 % (37.0-47.0); HEMOGLOBIN 12.7 g/dl (12.0-16.0); LYMPHOCYTES # 0.5 10^3/ul (0.8-2.9); LYMPHOCYTES % 4.5 % (15.0-51.0); MEAN CORPUSCULAR HEMOGLOBIN 35.3 pg (29.0-33.0); MEAN CORPUSCULAR VOLUME 106.9 fl (82.0-101.0); MEAN PLATELET VOLUME 11.9 fl (7.4-10.4); MONOCYTE # 0.4 10^3/ul (0.3-0.9); MONOCYTES % 3.7 % (0.0-11.0); NEUTROPHIL # 10.5 10^3/ul (1.6-7.5); NEUTROPHILS % 90.9 % (39.0-77.0); PLATELET COUNT 64 10^3/UL (140-415); RED CELL DISTRIBUTION WIDTH 15.5 % (11.5-14.5)
[2018-06-06 06:11] LABS: WHITE BLOOD COUNT 11.5 10^3/ul (4.8-10.8)
[2018-06-06] MEDS: LEVOTHYROXINE 125 MCG TAB PO (06:26)
[2018-06-06] MEDS: FUROSEMIDE 40 MG INJ IV ×2 (06:26→17:29)
[2018-06-06 06:32] LABS: POSITIVE DIFF @See below
[2018-06-06 06:37] LABS: ANION GAP 5 (5-13); BLOOD UREA NITROGEN 35 mg/dl (7-20); CALCIUM 7.8 mg/dl (8.4-10.2); CARBON DIOXIDE 38 mmol/L (21-31); CHLORIDE 101 mmol/L (97-110); GLUCOSE 145 mg/dl (70-220); POTASSIUM 3.6 mmol/L (3.5-5.1); SODIUM 144 mmol/L (135-144)
[2018-06-06 08:02] LABS: AADO2 Arterial 583.9 mmHg (7.0-24.0); Arterial Blood Gas Oxygen Sat 93.8 mmHG (95.0-100.0); Arterial COHb 0.7 % (0.0-3.0); Arterial Fraction of Oxyhgb 92.9 % (93.0-99.0); Arterial HCO3 36.1 mmol/L (22.0-26.0); Arterial MetHb 0.3 % (0.0-1.5); Arterial pCO2 53.9 mmhg (35-45); Blood Gas IEPAP 15/5; Blood Gas PS 10; MODE MASK - BIPAP; Site Right Brachial
[2018-06-06] MEDS: MEROPENEM 1 GM/50ML(PMX) 50 ML IVPB ×2 (08:30→20:00)
[2018-06-06] MEDS: FAMOTIDINE 20 MG INJ IV (08:30)
[2018-06-06] MEDS: ENOXAPARIN 30 MG/0.3 ML SYG SC (08:32)
[2018-06-07 06:10] LABS: ADD MAN DIFF? NO
[2018-06-07 06:16] LABS: ABNORMAL IP MESSAGE 1; BASOPHILS % 0.3 % (0.0-2.0); HEMATOCRIT 42.1 % (37.0-47.0); HEMOGLOBIN 13.7 g/dl (12.0-16.0); LYMPHOCYTES # 0.4 10^3/ul (0.8-2.9); LYMPHOCYTES % 5.1 % (15.0-51.0); MEAN CORPUSCULAR HEMOGLOBIN 35.4 pg (29.0-33.0); MEAN CORPUSCULAR HGB CONC 32.5 g/dl (32.0-37.0); MEAN CORPUSCULAR VOLUME 108.8 fl (82.0-101.0); MEAN PLATELET VOLUME 12.3 fl (7.4-10.4); MONOCYTE # 0.5 10^3/ul (0.3-0.9); MONOCYTES % 6.3 % (0.0-11.0); NEUTROPHILS % 87.8 % (39.0-77.0); PLATELET COUNT 58 10^3/UL (140-415); RED BLOOD COUNT 3.87 10^6/ul (4.20-5.40); RED CELL DISTRIBUTION WIDTH 15.6 % (11.5-14.5)
[2018-06-07] MEDS: METHYLPREDNISOLONE 40 MG INJ IV ×3 (06:23→18:00)
[2018-06-07] MEDS: FUROSEMIDE 40 MG INJ IV ×2 (06:23→18:01)
[2018-06-07 06:28] LABS: POSITIVE DIFF @See below
[2018-06-07 07:00] LABS: BLOOD UREA NITROGEN 34 mg/dl (7-20); CALCIUM 8.1 mg/dl (8.4-10.2); CHLORIDE 94 mmol/L (97-110); CREATININE 0.71 mg/dl (0.44-1.00); GLUCOSE 154 mg/dl (70-220); POTASSIUM 3.3 mmol/L (3.5-5.1); SODIUM 147 mmol/L (135-144)
[2018-06-07 07:24] LABS: ANION GAP 8 (5-13); CARBON DIOXIDE 45 mmol/L (21-31)
[2018-06-07 08:36] LABS: AADO2 Arterial 587.2 mmHg (7.0-24.0); Allen Test ACCEPTAB; Arterial Base Excess 13.4 mmol/L (-3.0-3); Arterial Blood Gas Oxygen Sat 94.5 mmHG (95.0-100.0); Arterial COHb 0.6 % (0.0-3.0); Arterial Fraction of Oxyhgb 93.6 % (93.0-99.0); Arterial HCO3 39.1 mmol/L (22.0-26.0); Arterial MetHb 0.3 % (0.0-1.5); Arterial pCO2 52.5 mmhg (35-45); Blood Gas IEPAP 15/5; MODE MASK - BIPAP; Site Right Brachial
[2018-06-07] MEDS: LEVOTHYROXINE 125 MCG TAB PO (08:40)
[2018-06-07] MEDS: MEROPENEM 1 GM/50ML(PMX) 50 ML IVPB ×2 (08:40→20:19)
[2018-06-07] MEDS: ENOXAPARIN 30 MG/0.3 ML SYG SC ×2 (08:42→09:00)
[2018-06-07] MEDS: FAMOTIDINE 20 MG INJ IV (09:00)
[2018-06-07] MEDS: POTASSIUM CHLORIDE 100 ML IVPB ×2 (11:31→12:53)
[2018-06-08] MEDS: METHYLPREDNISOLONE 40 MG INJ IV ×5 (00:22→23:35)
[2018-06-08 04:56] LABS: ADD MAN DIFF? NO
[2018-06-08 05:22] LABS: WHITE BLOOD COUNT 7.2 10^3/ul (4.8-10.8)
[2018-06-08 05:23] LABS: ABNORMAL IP MESSAGE 1; BASOPHILS % 0.1 % (0.0-2.0); HEMATOCRIT 45.3 % (37.0-47.0); HEMOGLOBIN 14.6 g/dl (12.0-16.0); LYMPHOCYTES # 0.4 10^3/ul (0.8-2.9); LYMPHOCYTES % 4.8 % (15.0-51.0); MEAN CORPUSCULAR HEMOGLOBIN 35.2 pg (29.0-33.0); MEAN CORPUSCULAR HGB CONC 32.2 g/dl (32.0-37.0); MEAN CORPUSCULAR VOLUME 109.2 fl (82.0-101.0); MEAN PLATELET VOLUME 12.5 fl (7.4-10.4); MONOCYTE # 0.4 10^3/ul (0.3-0.9); MONOCYTES % 5.4 % (0.0-11.0); NEUTROPHIL # 6.4 10^3/ul (1.6-7.5); NEUTROPHILS % 89.3 % (39.0-77.0); PLATELET COUNT 48 10^3/UL (140-415); RED BLOOD COUNT 4.15 10^6/ul (4.20-5.40)
[2018-06-08 05:32] LABS: POSITIVE DIFF @See below
[2018-06-08] MEDS: LEVOTHYROXINE 125 MCG TAB PO (05:39)
[2018-06-08] MEDS: FUROSEMIDE 40 MG INJ IV ×2 (05:39→18:34)
[2018-06-08 05:42] LABS: BLOOD UREA NITROGEN 35 mg/dl (7-20); CALCIUM 8.2 mg/dl (8.4-10.2); CHLORIDE 98 mmol/L (97-110); CREATININE 0.68 mg/dl (0.44-1.00); GLUCOSE 152 mg/dl (70-220); POTASSIUM 3.7 mmol/L (3.5-5.1); SODIUM 150 mmol/L (135-144)
[2018-06-08 05:56] LABS: ANION GAP 5 (5-13)
[2018-06-08 05:57] LABS: CARBON DIOXIDE 47 mmol/L (21-31)
[2018-06-08] MEDS: MEROPENEM 1 GM/50ML(PMX) 50 ML IVPB ×2 (09:23→20:19)
[2018-06-08] MEDS: FAMOTIDINE 20 MG INJ IV (09:29)
[2018-06-08 09:34] LABS: ANISOCYTOSIS 2+ (0-0); BAND NEUTROPHILS #M 0.4 10^3/ul (0.0-0.6); BAND NEUTROPHILS % (M) 6 % (0-4); BASOPHIL #M 0.1 10^3/ul (0.0-0.0); BASOPHILS % (M) 2 % (0-2); LYMPHOCYTES % (M) 1 % (15-51); PLATELET ESTIMATE SIG DECREASED; POIKILOCYTOSIS 1+ (0-0); SEG NEUT #M 6.6 10^3/ul (1.6-7.5); SEGMENTED NEUTROPHILS (M) % 91 % (39-77); SMUDGE%M 3 % (0-0)
[2018-06-08] MEDS: DEXTROSE 5% 1,000 ML IV (16:28)
[2018-06-09] MEDS: DEXTROSE 5% 1,000 ML IV ×2 (04:50→06:27)
[2018-06-09] MEDS: METHYLPREDNISOLONE 40 MG INJ IV ×2 (06:14→11:27)
[2018-06-09] MEDS: FUROSEMIDE 40 MG INJ IV (06:14)
[2018-06-09] MEDS: LEVOTHYROXINE 125 MCG TAB PO (06:21)
[2018-06-09] MEDS: FAMOTIDINE 20 MG INJ IV (08:24)
[2018-06-09] MEDS: MEROPENEM 1 GM/50ML(PMX) 50 ML IVPB (08:24)
[2018-06-09] MEDS ORDERED: ACETAMINOPHEN 325 MG TAB PO (10:00)
[2018-06-09] MEDS ORDERED: ACETAMINOPHEN 650 MG SUPP PR (10:00)
[2018-06-09] MEDS: LORAZEPAM 2 MG INJ IV (11:20)
[2018-06-09] MEDS: morphine 2 MG INJ IV (11:20)
[2018-06-09] MEDS: morphine (DRIP) 100 MG/100 ML 100 ML IV (11:26)
[2018-06-09] MEDS: SCOPOLAMINE 1.5 MG PATCH TRANSDERM (13:00)
[2018-06-09] MEDS: ATROPINE 1% 5 ML OPH BOTH EYES ×3 (13:00→21:00)
[2018-06-09] MEDS ORDERED: ATROPINE 1% 5 ML OPH SL (22:00)
== END 2018-06-10 07:53 | disposition expired | DRG 871 ==
LOC: ICU 06-03 16:57 → E/R 11:04 → 6WM 14:40 → 5EC 06-09 18:10
PROC: 5A09357 Assistance with Respiratory Ventilation, Less than 24 Consecutive Hours, Continuous Positive Airway Pressure (ICD-10-PCS; principal; 2018-06-01)
PROC: 4A133R1 Monitoring of Arterial Saturation, Peripheral, Percutaneous Approach (ICD-10-PCS; 2018-06-01)
PROC: 5A09457 Assistance with Respiratory Ventilation, 24-96 Consecutive Hours, Continuous Positive Airway Pressure (ICD-10-PCS; 2018-06-06)
DX: A41.9 Sepsis, unspecified organism (principal); R65.21 Severe sepsis with septic shock; J96.01 Acute respiratory failure with hypoxia; I50.33 Acute on chronic diastolic (congestive) heart failure; J18.9 Pneumonia, unspecified organism; J96.02 Acute respiratory failure with hypercapnia; D68.9 Coagulation defect, unspecified; E87.0 Hyperosmolality and hypernatremia; N39.0 Urinary tract infection, site not specified; D64.9 Anemia, unspecified; D69.6 Thrombocytopenia, unspecified; Z66 Do not resuscitate; R62.7 Adult failure to thrive; E03.9 Hypothyroidism, unspecified; I25.10 Atherosclerotic heart disease of native coronary artery without angina pectoris; I35.0 Nonrheumatic aortic (valve) stenosis; F41.9 Anxiety disorder, unspecified; E87.6 Hypokalemia; K74.60 Unspecified cirrhosis of liver; Z88.0 Allergy status to penicillin; Z96.652 Presence of left artificial knee joint; Z90.49 Acquired absence of other specified parts of digestive tract
CPT/HCPCS: 36415; 36600; 71045; 71275; 80048; 80053; 80061; 81001; 82803; 83036; 83605; 83735; 83880; 84100; 84443; 84484; 85025; 85610; 85730; 87040; 87081; 87086; 92526; 92610; 93005; 93306; 94660; 96374; 99291-25